=== PATIENT | female | born 1975 | race Caucasian/White ===

== ENCOUNTER 2021-09-28 06:04 | Emergency (ER) | payer OTHER ==
[~2021-09-28 06:04] MED LIST: NORVASC5 MG PO; TOPROL XL 50 MG50 MG PO
[2021-09-28] MEDS ORDERED: NORVASC5 MG PO (06:31)
[2021-09-28] MEDS ORDERED: MEDROL 4MG DOSEP4 MG PO (06:45)
== END 2021-09-28 06:47 | disposition home or self-care (01) ==
LOC: FER 06:04
DX: T78.3XXA Angioneurotic edema, initial encounter (principal); I10 Essential (primary) hypertension; E78.5 Hyperlipidemia, unspecified; F17.200 Nicotine dependence, unspecified, uncomplicated; Z79.899 Other long term (current) drug therapy
CPT/HCPCS: 99283